=== PATIENT | male | born 1950 | race Two or more races ===

== ENCOUNTER 2023-01-18 07:31 | Outpatient (CLI) | payer OTHER | END 2023-01-18 07:34 | disposition home or self-care (01) | LOC: NUCLEAR 07:31 | PROVIDERS: ATTEND Internal Medicine Cardiovascular Disease | DX: I20.8 Other forms of angina pectoris (principal); R07.9 Chest pain, unspecified ==

== ENCOUNTER 2023-01-18 07:53 | Outpatient (CLI) | payer OTHER | END 2023-01-18 07:54 | disposition home or self-care (01) | LOC: LAB 07:53 | PROVIDERS: ATTEND Internal Medicine | DX: U07.1 COVID-19 (principal); B34.1 Enterovirus infection, unspecified ==